=== PATIENT | female | born 1980 | race African-American/Black ===

== ENCOUNTER 2024-03-30 14:26 | Outpatient (AMB) | payer BC, SELFPAY ==
--- NOTE | 2024-03-30 14:31 | MHC.PC.OV ---
Vital Signs 03/30/24 14:44 Height 5 ft 6.22 in Weight 276 lb 2 oz BMI 44.3 BP 124/88 Blood Pressure Location Lt brachial Position Sitting Respiration 16 Pulse 75 Pulse Source Pulse Oximeter Temp 98.7 F Temp Source Oral Pulse Oximetry (%) 97 Oxygen Delivery Method Room Air Intake Visit Reasons: new patient Allergies Penicillins Allergy (Severe, Verified 03/30/24 14:37) Anaphylaxis Medication List - Last Reconciled 03/30/24 by Geno Iglesias PA-C amlodipine 5 mg PO DAILY cholecalciferol (vitamin D3) 250 mcg PO DAILY cyanocobalamin-salcaprozat sod 1,000-100 mcg-mg tabs PO emtricitabine-tenofovir (TDF) 200-300 mg 1 tab PO DAILY multivitamin 1 tab PO DAILY omeprazole magnesium (Prilosec OTC) 20 mg PO DAILY Tobacco use date assessed: 03/30/24 Dental Screening Dental Screen Date: 03/30/24 Did you have a dental visit in the last 12 months?: Yes Did you have a dental problem in the last 6 months where you did not have access to dental care?: No Was dental information given to patient?: Patient has dentist HPI new patient HPI Details Patient is a 43-year-old female who [facility]. She is transferring from [facility]. She has a significant past medical history of hypertension, obesity, hyperlipidemia, paroxysmal AFib, MORGAN on cpap, pcos, prediabetes and tobacco use. CV: Blood pressure today in the office is 124/88. She is currently on Norvasc 5 mg daily, metoprolol 50 bid, and flecainide prn breakthrough afib. She does not need ac yet. She follows with Dr. Manning. She did see EP and the plan was flecainide to try now. Heme/Onc: Following with [facility] hematology for anemia and dx thalessemia. She had a sleep study in November which did confirm MORGAN and she is on CPAP Pysch: She has a hard time falling asleep and staying asleep. She is wondering about trazodone. Mammo: Aug 2023, utd Tabber: Sees [facility] nurse gynecology [facility] Medical History (Updated 03/30/24 @ 15:13 by Geno Iglesias PA-C) Vulvar lesion Tobacco use Severe obesity Prediabetes New onset a-fib Hyperlipidemia HTN (hypertension) Elevated creatine kinase Surgical History (Updated 03/30/24 @ 14:52 by Jordyn Boucher CMA) H/O gastric sleeve Family History (Updated 03/30/24 @ 14:51 by Jordyn Boucher CMA) Father Alcoholic Arrhythmia Afib COPD (chronic obstructive pulmonary disease) Morbid obesity Mother Diabetes Kidney disease Other Substance use Social History Housing: Apartment Patient Tobacco Use Status: Current everyday Tobacco user Cigarette Packs Per Day: 0.25 Years Smoked: 15 e-Cigarette/Vaping Use: Never Used Second Hand Smoke Exposure: No service: No Current occupational status: 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 1. Little interest or pleasure in doing things: not at all 2. Feeling down, depressed, or hopeless: not at all 3. Trouble falling or staying asleep, or sleeping too much: not at all 4. Feeling tired or having little energy: not at all 5. Poor appetite or overeating: not at all 6. Feeling bad about yourself - or that you are a failure or have let yourself or your family down: not at all 7. Trouble concentrating on things, such as reading the newspaper or watching television: not at all 8. Moving or speaking so slowly that other people could have noticed. Or the opposite - being so fidgety or restless that you have been moving around a lot more than usual: not at all 9. Thoughts that you would be better off or of hurting yourself in some way: not at all Total score: 0 Depression Screening Interpretation: Negative Depression Screening Done: Yes Source: Developed by Drs. Swapnil Olmedo, Gloria Thompson, Pranay Payan and colleagues, with an educational anoop from [employer]. AUDIT C Alcohol Use Questionnaire (AUDIT-C) 1. How often do you have a drink containing alcohol?: 2-3 times a week 2. How many drinks containing alcohol do you have on a typical day when you are drinking?: 1 or 2 3. How often do you have six or more drinks on one occasion?: Never Total Score: 3 JOSE CARLOS-7 AMB Questionnaire JOSE CARLOS-7 Feeling nervous, anxious, or on edge: 0 = Not at all Not being able to stop or control worryin = Not at all Worrying too much about different things: 0 = Not at all Trouble relaxin = Not at all Being so restless that it is hard to sit still: 0 = Not at all Becoming easily annoyed or irritable: 0 = Not at all Feeling afraid as if something awful might happen: 0 = Not at all Total JOSE CARLOS-7 score (0-4 normal; 5-9 mild; 10-14 moderate; 15-21 severe): 0 Source: Developed by Drs. Swapnil Olmedo, Gloria Thompson, Pranay Payan and colleagues, with an educational anoop from [employer]. JOSE CARLOS-7 Assessment Billing JOSE CARLOS-7 Assessment Tool: JOSE CARLOS-7 Assessment [id number] Physical exam (Primary Care) Vital Signs: Last Vital Signs Temp 98.7 F 03/30/24 14:44 Pulse 75 03/30/24 14:44 Resp 16 03/30/24 14:44 BP 124/88 03/30/24 14:44 Pulse Ox 97 03/30/24 14:44 Oxygen Delivery Method Room Air 03/30/24 14:44 BMI result Body Mass Index 44.3 BMI Assessment/Plan discussion: High BMI High, discussed plan: lifestyle, weight reduction, dietary and physical activity Tobacco/Smoking Status: Tobacco use Status Tobacco use date assessed 03/30/24 03/30/24 14:51 Patient Tobacco Use Status Current everyday Tobacco 03/30/24 14:51 e-Cigarette/Vaping Use Never Used 03/30/24 14:51 Depression Screening Interpretation: Negative Const Orientation/consciousness: patient oriented x3 HENMT Ears: hearing grossly normal bilaterally Neck Thyroid: Thyroid normal Lymphatic: no lymphadenopathy noted Resp Auscultation: clear to auscultation bilaterally Cardio Rate: regular rate Rhythm: regular rhythm Heart sounds: S1 normal heart sound present and S2 normal heart sound present GI Inspection: Yes normal to inspection Palpation (GI): Soft to palpation and Other GI palpation findings present (nontender, no cva tenderness) Auscultation: normoactive bowel sounds Rectal Exam - Female: deferred Skin General skin exam: no rashes or lesions noted Neuro General: patient oriented x3, gait normal and no focal motor deficits Assessment and Plan Assessment & Plan (1) HTN (hypertension): Code(s): I10 - Essential (primary) hypertension Qualifiers: Hypertension type: primary hypertension Qualified Code(s): I10 - Essential (primary) hypertension Plan: WNL today. Continue current regimen (2) Prediabetes: Code(s): R73.03 - Prediabetes Plan: Labs ordered to including A1c (3) Paroxysmal A-fib: Code(s): I48.0 - Paroxysmal atrial fibrillation Plan: Follows with cardiology. Currently well-controlled. (4) Insomnia: Code(s): G47.00 - Insomnia, unspecified Plan: We will try trazodone. Discussed risks, benefits and adverse effects of the medication. One-month follow-up. Sooner if needed. (5) MORGAN on CPAP: Code(s): G47.33 - Obstructive sleep apnea (adult) (pediatric) Plan: Doing well on CPAP. Follows with sleep Medicine. Orders: Orders Vitamin B12 and Folate Today G47.00 - Insomnia, unspecified, G47.33 - Obstructive sleep apnea (adult) (pediatric), I10 - Essential (primary) hypertension, I48.0 - Paroxysmal atrial fibrillation, R73.03 - Prediabetes Complete Blood Count Auto Diff Today G47.00 - Insomnia, unspecified, G47.33 - Obstructive sleep apnea (adult) (pediatric), I10 - Essential (primary) hypertension, I48.0 - Paroxysmal atrial fibrillation, R73.03 - Prediabetes Comprehensive [place]. Panel Fast Today G47.00 - Insomnia, unspecified, G47.33 - Obstructive sleep apnea (adult) (pediatric), I10 - Essential (primary) hypertension, I48.0 - Paroxysmal atrial fibrillation, R73.03 - Prediabetes Lipid Panel Today G47.00 - Insomnia, unspecified, G47.33 - Obstructive sleep apnea (adult) (pediatric), I10 - Essential (primary) hypertension, I48.0 - Paroxysmal atrial fibrillation, R73.03 - Prediabetes TSH reflex Free T4 Today G47.00 - Insomnia, unspecified, G47.33 - Obstructive sleep apnea (adult) (pediatric), I10 - Essential (primary) hypertension, I48.0 - Paroxysmal atrial fibrillation, R73.03 - Prediabetes Medications: New trazodone 50 mg PO BEDTIME 90 tabs 1RF Coding Level of Care Code Est Pt Level 4 (35993) Complex EM visit Add On G2211 Diagnoses Primary hypertension I10 Hypertension type: primary hypertension Prediabetes R73.03 Paroxysmal A-fib I48.0 Insomnia G47.00 MORGAN on CPAP G47.33 Additional Codes JOSE CARLOS-7 Assessment Billing - JOSE CARLOS-7 Assessment Tool: JOSE CARLOS-7 Assessment [id number] ([id number])
[2024-03-30 14:44] VITALS: BP 124/88; PULSE 75; RESP 16; TEMP 37.1; O2SAT 97; BMI 44.3
== END 2024-03-30 15:14 | disposition home or self-care (01) ==
PROVIDERS: PCP Physician Assistant; Visit Provider Physician Assistant
DX: I10 Essential (primary) hypertension (principal); R73.03 Prediabetes; I48.0 Paroxysmal atrial fibrillation; G47.00 Insomnia, unspecified; G47.33 Obstructive sleep apnea (adult) (pediatric)
CPT/HCPCS: 99204; 99214

== ENCOUNTER 2024-04-18 09:56 | Outpatient (REF) | payer BC, SELFPAY ==
[2024-04-18 11:45] LABS: MANUAL DIFF FLAG NO
[2024-04-18 11:48] LABS: Basophils Percent Auto 0.4 % (0-2); Eosinophils Absolute Auto 0.2 X10*3/uL (0.0-0.4); Hematocrit 39.4 % (37.0-47.0); Hemoglobin 12.3 g/dl (12.0-16.0); Imm Gran Abs Auto 0.03 X10*3/uL (0.00-0.03); Imm Gran Pct Auto 0.3 % (0.0-0.4); Lymphocytes Absolute Auto 2.9 X10*3/uL (1.2-4.9); Lymphocytes Percent Auto 32.8 % (20-40); Mean Corpuscular HGB Conc 31.2 g/dl (31.0-35.0); Mean Corpuscular Hemoglobin 23.6 pg (27.0-33.0); Mean Corpuscular Volume 75.5 fL (80.0-98.0); Mean Platelet Volume 12.3 fL (9.4-12.3); Monocytes Absolute Auto 0.7 X10*3/uL (0.1-1.2); Monocytes Percent Auto 8.1 % (2-11); Neutrophils Percent Auto 56.4 % (45-73); Platelet Count 261 X10*3/uL (160-400); Red Blood Count 5.22 X10*6/uL (4.20-5.50); Red Cell Distribution Width 16.4 % (11.0-16.0); White Blood Count 8.9 X10*3/uL (4.8-10.8)
[2024-04-18 12:42] LABS: Alanine Aminotransferase 19 U/L (0-31); Albumin Level 3.7 g/dL (3.5-5.0); Alkaline Phosphatase 41 U/L (39-117); Anion Gap 14 (12-20); Aspartate Amino Transferase 17 U/L (5-31); Bilirubin Total 0.2 mg/dL (0.0-1.0); Blood Urea Nitrogen 15 mg/dL (9-16); Carbon Dioxide 23 mmol/L (22-29); Chloride 105 mmol/L (96-108); Cholesterol 195 mg/dL (<200); Estimated Glomerular Filt Rate 57; Glucose Fasting 84 mg/dL (60-99); HDL Cholesterol 55 mg/dL (>40); LDL Cholesterol Calculated 112 mg/dL (<100); Potassium 3.8 mmol/L (3.3-5.1); Sodium 138 mmol/L (135-145); Triglycerides 142 mg/dL (<150)
[2024-04-18 12:47] LABS: TSH reflex Free T4 2.25 uIU/mL (0.32-4.0)
[2024-04-18 12:56] LABS: Folate 3.9 ng/mL (> or = 4.0); Vitamin B12 1598 pg/mL (200-900)
== END 2024-04-18 09:57 | disposition home or self-care (01) ==
LOC: HO.WFDLDS 09:56
PROVIDERS: Visit Provider Physician Assistant
DX: R73.03 Prediabetes (principal); I48.0 Paroxysmal atrial fibrillation; I10 Essential (primary) hypertension; G47.00 Insomnia, unspecified; G47.33 Obstructive sleep apnea (adult) (pediatric)
CPT/HCPCS: 36415; 80053; 80061; 82607; 82746; 84443; 85025

== ENCOUNTER 2024-05-04 13:48 | Outpatient (AMB) | payer BC, SELFPAY ==
--- NOTE | 2024-05-04 13:59 | MHC.PC.OV ---
Vital Signs 05/04/24 14:03 Height 5 ft 6.2 in Weight 277 lb 6 oz BMI 44.5 BP 126/84 Blood Pressure Location Lt brachial Position Sitting Respiration 16 Pulse 77 Pulse Source Pulse Oximeter Pulse Oximetry (%) 98 Oxygen Delivery Method Room Air Intake Visit Reasons: med recheck Intake Note: Medication follow up. Was taking vitamin d3 5,000 units daily and b12 1,000 daily, stopped due to elevated levels. Risk Specialist Required: No Allergies Penicillins Allergy (Severe, Verified 05/04/24 14:00) Anaphylaxis Medication List - Last Reconciled 05/04/24 by Geno Iglesias PA-C amlodipine 5 mg PO DAILY flecainide mg PO folic acid 1 mg PO DAILY metoprolol tartrate 50 mg PO BID multivitamin 1 tab PO DAILY omeprazole magnesium (Prilosec OTC) 20 mg PO DAILY trazodone 50 mg PO BEDTIME Tobacco use date assessed: 03/30/24 Dental Screening Dental Screen Date: 03/30/24 HPI med recheck HPI Details Patient is a 43-year-old female who presents today for a follow up. She is transferring from [facility]. She has a significant past medical history of hypertension, obesity, hyperlipidemia, paroxysmal AFib, MORGAN on cpap, pcos, prediabetes and tobacco use. CV: Blood pressure today in the office is 124/88. She is currently on Norvasc 5 mg daily, metoprolol 50 bid, and flecainide prn breakthrough afib. She does not need ac yet. She follows with Dr. Manning. She did see EP and the plan was flecainide to try now. Heme/Onc: Following with [facility] hematology for anemia and dx thalessemia. She had a sleep study in November which did confirm MORGAN and she is on CPAP Pysch: At our last visit I started her on trazodone but felt drowsy in the AM. she is trying thc gummies which have been helpful. 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 [facility] Medical History (Updated 05/04/24 @ 14:16 by Geno Iglesias PA-C) Vulvar lesion Tobacco use Severe obesity Prediabetes New onset a-fib Hyperlipidemia HTN (hypertension) Elevated creatine kinase Surgical History (Updated 03/30/24 @ 14:52 by Jordyn Boucher CMA) H/O gastric sleeve Family History (Updated 03/30/24 @ 14:51 by Jordyn Boucher CMA) Father Alcoholic Arrhythmia Afib COPD (chronic obstructive pulmonary disease) Morbid obesity Mother Diabetes Kidney disease Other Substance use Social History Housing: Apartment Patient Tobacco Use Status: Current everyday Tobacco user Cigarette Packs Per Day: 0.25 Years Smoked: 15 e-Cigarette/Vaping Use: Never Used Second Hand Smoke Exposure: No service: No Current occupational status: 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 Current occupational exposures/hazards: No Cognitive needs: No Hearing needs: No Vision needs: No Physical exam (Primary Care) Vital Signs: Last Vital Signs Pulse 77 05/04/24 14:03 Resp 16 05/04/24 14:03 BP 126/84 05/04/24 14:03 Pulse Ox 98 05/04/24 14:03 Oxygen Delivery Method Room Air 05/04/24 14:03 BMI result Body Mass Index 44.5 Tobacco/Smoking Status: Tobacco use Status Tobacco use date assessed 03/30/24 05/04/24 13:59 Patient Tobacco Use Status Current everyday Tobacco 05/04/24 13:59 e-Cigarette/Vaping Use Never Used 05/04/24 13:59 Const Orientation/consciousness: patient oriented x3 HENMT Ears: hearing grossly normal bilaterally Neck Thyroid: Thyroid normal Lymphatic: no lymphadenopathy noted Resp Auscultation: clear to auscultation bilaterally Cardio Rate: regular rate Rhythm: regular rhythm Heart sounds: S1 normal heart sound present and S2 normal heart sound present GI Inspection: Yes normal to inspection Palpation (GI): Soft to palpation and Other GI palpation findings present (nontender, no cva tenderness) Auscultation: normoactive bowel sounds Rectal Exam - Female: deferred Skin General skin exam: no rashes or lesions noted Neuro General: patient oriented x3, gait normal and no focal motor deficits Results Reviewed Results Reviewed: Laboratory Tests 04/18/24 09:58 WBC 8.9 RBC 5.22 Hgb 12.3 Hct 39.4 Plt Count 261 Sodium 138 Potassium 3.8 Chloride 105 Carbon Dioxide 23 Anion Gap 14 BUN 15 Creatinine 1.05 Estimated GFR 57 Fasting Glucose 84 Triglycerides 142 Cholesterol 195 LDL Cholesterol, Calc 112 H HDL Cholesterol 55 TSH 2.25 Assessment and Plan Assessment & Plan (1) HTN (hypertension): Code(s): I10 - Essential (primary) hypertension Qualifiers: Hypertension type: primary hypertension Qualified Code(s): I10 - Essential (primary) hypertension Plan: continue current plan (2) Prediabetes: Code(s): R73.03 - Prediabetes Plan: a1c ordered (3) Insomnia: Code(s): G47.00 - Insomnia, unspecified Plan: continue supplement (4) Decreased GFR: Code(s): R94.4 - Abnormal results of kidney function studies Plan: recheck today along with urine Coding Level of Care Code Est Pt Level 4 (66052) Complex EM visit Add On G2211 Diagnoses Primary hypertension I10 Hypertension type: primary hypertension Prediabetes R73.03 Insomnia G47.00 Decreased GFR R94.4
[2024-05-04 14:03] VITALS: BP 126/84; PULSE 77; RESP 16; O2SAT 98; BMI 44.5
== END 2024-05-04 14:59 | disposition home or self-care (01) ==
PROVIDERS: PCP Physician Assistant; Visit Provider Physician Assistant
DX: I10 Essential (primary) hypertension (principal); R73.03 Prediabetes; G47.00 Insomnia, unspecified; R94.4 Abnormal results of kidney function studies
CPT/HCPCS: 99214

== ENCOUNTER 2024-05-04 14:30 | Outpatient (REF) | payer BC, SELFPAY ==
[2024-05-04 17:51] LABS: Anion Gap 10 (12-20); Blood Urea Nitrogen 12 mg/dL (9-16); Calcium 9.3 mg/dL (8.4-10.2); Carbon Dioxide 28 mmol/L (22-29); Chloride 105 mmol/L (96-108); Estimated Glomerular Filt Rate 58; Glucose Random 105 mg/dL (60-115); Potassium 4.2 mmol/L (3.3-5.1); Sodium 139 mmol/L (135-145)
[2024-05-04 18:08] LABS: Creatinine Urine 99.01 mg/dL; Microalbumin Urine < 5.0 mg/L
[2024-05-05 07:27] LABS: Estimated Average Glucose 114 mg/dL; Hemoglobin A1c % 5.6 % (<6.0)
== END 2024-05-04 14:31 | disposition home or self-care (01) ==
LOC: HO.WFDLDS 14:30
PROVIDERS: Visit Provider Physician Assistant
DX: R94.4 Abnormal results of kidney function studies (principal); R73.03 Prediabetes
CPT/HCPCS: 36415; 80048; 82570; 83036

== ENCOUNTER 2024-05-27 10:13 | Outpatient (AMB) | payer BC, SELFPAY ==
[2024-05-27 10:14] VITALS: BP 124/88; PULSE 87; O2SAT 97; BMI 44.9
--- NOTE | 2024-05-27 10:14 | HO.NEPHOV_ITS ---
Vital Signs 05/27/24 10:14 Height 5 ft 6 in Weight 278 lb BMI 44.9 BP 124/88 Blood Pressure Location Lt brachial Position Sitting Pulse 87 Pulse Source Pulse Oximeter Pulse Oximetry (%) 97 Oxygen Delivery Method Room Air Intake Visit Reasons: Htn, Abnormal kidney function/ Conf Compliance Mgr Required: No Accompanied by: Self / Same As Patient Allergies Penicillins Allergy (Severe, Verified 05/27/24 10:16) Anaphylaxis Medication List - Last Reconciled 05/27/24 by Mariano Cardoso MD amlodipine 5 mg PO DAILY flecainide 300 mg PO DAILY PRN folic acid 1 mg PO DAILY metoprolol tartrate 50 mg PO BID multivitamin 1 tab PO DAILY omeprazole magnesium (Prilosec OTC) 20 mg PO DAILY PRN trazodone 50 mg PO BEDTIME PRN HPI Comments Details: Crystal is a pleasant 44-year-old woman with a history of hypertension and increase BMI he was found to have decreased GFR. Back in August of 2023 serum creatinine was 1.0. Recently creatinine was 1.05 and repeat creatinine was 1.03. The corresponding EGFR was reported at 58 mL/minute and hence this evaluation. Crystal underwent gastric sleeve surgery. She lost about 50-70 lb be back in 2015. Subsequently she came in the weight back. She does have prediabetes. Blood pressure seems to be well controlled with metoprolol and amlodipine. She has a history of atrial fibrillation and rate is well controlled. Back in October of 2023 she took Truvada for prophylaxis up until 01/18/2024. She also has GERD and takes omeprazole on a chronic basis. History of obstructive sleep apnea. She does not use CPAP on a regular basis. No history of smoking or alcohol abuse. She works in [employer]. Mom has end stage renal disease due to hypertension diabetes mellitus and status post kidney transplantation. She has no difficulty urination. No history of kidney stones. No nausea or vomiting. No shortness of breath chest pain. No fever no rash. [facility] Medical History (Updated 05/04/24 @ 14:16 by Geno Iglesias PA-C) Vulvar lesion Tobacco use Severe obesity Prediabetes New onset a-fib Hyperlipidemia HTN (hypertension) Elevated creatine kinase Surgical History H/O gastric sleeve Family History Father Alcoholic Arrhythmia Afib COPD (chronic obstructive pulmonary disease) Morbid obesity Mother Diabetes Kidney disease Other Substance use Social History Housing: Apartment Patient Tobacco Use Status: Current everyday Tobacco user Cigarette Packs Per Day: 0.25 Years Smoked: 15 e-Cigarette/Vaping Use: Never Used Second Hand Smoke Exposure: No service: No 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 occupational status: 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 Current occupational exposures/hazards: No Cognitive needs: No Hearing needs: No Vision needs: No Physical Exam Vital Signs: Last Vital Signs Pulse 87 05/27/24 10:14 BP 124/88 05/27/24 10:14 Pulse Ox 97 05/27/24 10:14 Oxygen Delivery Method Room Air 05/27/24 10:14 BMI result Body Mass Index 44.9 Obese Const General: comfortable; No acute distress Orientation/consciousness: patient oriented x3 Eyes General: appearance normal, both eyes and all related structures Visual Dumont: normal visual dumont by confrontation Neck Neck: Yes supple and Yes no JVD Resp Effort & Inspection: normal respiratory effort and respiratory effort not decreased Auscultation: rhonchi Cardio Palpation: no palpable S3 and no palpable S4 Heart sounds: no rubs GI Inspection: Yes normal to inspection Palpation (GI): Soft to palpation Percussion: Yes normal to percussion Auscultation: normal bowel sounds General: Yes no CVA tenderness Back/Spine/Pelvis Back: no CVA tenderness Skin General skin exam: no petechiae and no purpura Neuro General: patient oriented x3 and no focal motor deficits Extrem General: No clubbing and No edema Results Reviewed Nephrology Results: Hgb 12.3 g/dl (12.0-16.0) 04/18/24 WBC 8.9 X10*3/uL (4.8-10.8) 04/18/24 Plt Count 261 X10*3/uL (160-400) 04/18/24 Sodium 139 mmol/L (135-145) 05/04/24 Potassium 4.2 mmol/L (3.3-5.1) 05/04/24 Chloride 105 mmol/L (96-108) 05/04/24 Carbon Dioxide 28 mmol/L (22-29) 05/04/24 BUN 12 mg/dL (9-16) 05/04/24 Creatinine 1.03 mg/dL (0.5-1.4) 05/04/24 Calcium 9.3 mg/dL (8.4-10.2) 05/04/24 Urine Creatinine 99.01 mg/dL 05/04/24 Assessment & Plan Assessment & Plan (1) HTN (hypertension): Code(s): I10 - Essential (primary) hypertension Category: Medical Qualifiers: Hypertension type: primary hypertension Qualified Code(s): I10 - Essential (primary) hypertension (2) Decreased GFR: Code(s): R94.4 - Abnormal results of kidney function studies Category: Medical Plan Pleasant 44-year-old woman with a history of obesity hypertension and prediabetes with a serum creatinine of 1.05 and EGFR of 58 mL/minute. The accuracy of EGFR is questionable at this point. Obtain 24 hour urine collection for creatinine clearance. If she has low creatinine clearance she will require further workup. She has increased muscle mass therefore the serum creatinine of 1.0 3 May be her baseline. He has no significant proteinuria. With a history of gastric weight loss surgery I will obtain a renal ultrasonogram to screen for nephrolithiasis. He has been on proton pump inhibitor for a long time which could be a potential factor for reduce EGFR Encouraged her to stay on low-sodium diet She needs weight loss. Optimize blood pressure and continue overt nephrotoxic agents. Further workup based on the outcome of the above investigations. Orders: Orders Basic Metabolic Panel Today Mariano Cardoso MD I10 - Essential (primary) hypertension, R94.4 - Abnormal results of kidney function studies Creatinine, 24 Hr Group Today Mariano Cardoso MD I10 - Essential (primary) hypertension, R94.4 - Abnormal results of kidney function studies UA and rflx microscopic Today Mariano Cardoso MD I10 - Essential (primary) hypertension, R94.4 - Abnormal results of kidney function studies Creatinine Clearance Urine 24U Today Mariano Cardoso MD I10 - Essential (primary) hypertension, R94.4 - Abnormal results of kidney function studies Medications: Changed From trazodone 50 mg PO BEDTIME 90 tabs 1RF To trazodone 50 mg PO BEDTIME PRN Geno Iglesias PA-C Coding Level of Care Code New Pt Level 4 (44813) Diagnoses Primary hypertension I10 Hypertension type: primary hypertension Decreased GFR R94.4
== END 2024-05-27 10:36 | disposition home or self-care (01) ==
PROVIDERS: PCP Physician Assistant; Referring Provider Physician Assistant; Visit Provider Internal Medicine Hypertension Specialist
DX: I10 Essential (primary) hypertension (principal); R94.4 Abnormal results of kidney function studies; R73.03 Prediabetes
CPT/HCPCS: 99204

== ENCOUNTER → 2024-05-27 10:13 | Outpatient (BNVA) | payer BC, SELFPAY | PROVIDERS: PCP Physician Assistant; Referring Provider Physician Assistant; Visit Provider Internal Medicine Hypertension Specialist ==

== ENCOUNTER 2024-05-27 11:28 | Outpatient (REF) | payer BC, SELFPAY | END 2024-05-27 11:29 | disposition home or self-care (01) | LOC: HO.WFDLDS 11:28 | PROVIDERS: Visit Provider Internal Medicine Hypertension Specialist | DX: Z13.89 Encounter for screening for other disorder (principal) ==

== ENCOUNTER 2024-06-15 09:57 | Outpatient (REF) | payer BC, SELFPAY ==
[2024-06-15 11:37] LABS: Appearance Urine Clear; Color Urine Yellow; Glucose Urine UA Negative (Negative); Leukocyte Esterase Urine Trace (Negative); Nitrite Urine Negative (Negative); PH 5.5 (5.0-9.0); Specific Gravity - Urine >= 1.030 (1.005-1.025); UMIC TRIGGER UA YES; Urine Blood Negative (Negative); Urine Ketones Negative (Negative); Urine Protein Negative (Neg-Trace)
[2024-06-15 11:40] LABS: Bacteria Urine None Seen (None Seen); Hyaline Casts Urine 0-2 /LPF (0-2); RBC Urine 0-2 /HPF (0-2)
[2024-06-15 12:25] LABS: Anion Gap 11 (12-20); Blood Urea Nitrogen 16 mg/dL (9-16); Calcium 9.1 mg/dL (8.4-10.2); Carbon Dioxide 26 mmol/L (22-29); Chloride 106 mmol/L (96-108); Estimated Glomerular Filt Rate 60; Glucose Random 110 mg/dL (60-115); Potassium 3.8 mmol/L (3.3-5.1); Sodium 139 mmol/L (135-145)
[2024-06-15 12:25] LABS: Creatinine, mg/dL 134.96; Creatinine, mg/dL 137.32
[2024-06-15 15:11] LABS: Creatinine, 24Hr Urine 2.2 G/Day (1.0-2.0); Total Volume 24 Hour Urine 1600 mL
[2024-06-15 20:56] LABS: Creatinine (CrCl) 1.01 mg/dL (0.5-1.4); Creatinine Clearance 148.4 mL/min (85-125)
== END 2024-06-15 09:58 | disposition home or self-care (01) ==
LOC: HO.WFDLDS 09:57
PROVIDERS: Visit Provider Internal Medicine Hypertension Specialist
DX: I10 Essential (primary) hypertension (principal); R94.4 Abnormal results of kidney function studies
CPT/HCPCS: 36415; 80048; 81001; 82570; 82575

== ENCOUNTER 2024-06-21 09:50 | Outpatient (AMB) | payer BC, SELFPAY ==
--- NOTE | 2024-06-21 09:57 | HO.NEPHOV ---
Vital Signs 06/21/24 09:58 Height 5 ft 6 in Weight 279 lb BMI 45.0 BP 112/80 Blood Pressure Location Lt brachial Position Sitting Pulse 76 Pulse Source Pulse Oximeter Pulse Oximetry (%) 98 Oxygen Delivery Method Room Air Intake Visit Reasons: 3-4 wks follow up/ LVM Dolly Operator Required: No Accompanied by: Self / Same As Patient Allergies Penicillins Allergy (Severe, Verified 06/21/24 10:00) Anaphylaxis Medication List - Last Reconciled 06/21/24 by Mariano Cardoso MD amlodipine 5 mg PO DAILY flecainide 300 mg PO DAILY PRN folic acid 1 mg PO DAILY metoprolol tartrate 50 mg PO BID multivitamin 1 tab PO DAILY omeprazole magnesium (Prilosec OTC) 20 mg PO DAILY PRN trazodone 50 mg PO BEDTIME PRN HPI Comments Details: Crystal is a pleasant 44-year-old woman with a history of hypertension and increase BMI he was found to have decreased GFR. Back in August of 2023 serum creatinine was 1.0. Recently creatinine was 1.05 and repeat creatinine was 1.03. The corresponding EGFR was reported at 58 mL/minute and hence this evaluation. Crystal underwent gastric sleeve surgery. She lost about 50-70 lb be back in 2015. Subsequently she came in the weight back. She does have prediabetes. Blood pressure seems to be well controlled with metoprolol and amlodipine. She has a history of atrial fibrillation and rate is well controlled. Back in October of 2023 she took Truvada for prophylaxis up until 01/18/2024. She also has GERD and takes omeprazole on a chronic basis. History of obstructive sleep apnea. She does not use CPAP on a regular basis. No history of smoking or alcohol abuse. She works in [employer] Mom has end stage renal disease due to hypertension diabetes mellitus and status post kidney transplantation. She has no difficulty urination. No history of kidney stones. No nausea or vomiting. No shortness of breath chest pain. No fever no rash. 06/21/2024. Overall doing well no new issues Underwent 24 hour urine collection [facility] Medical History (Updated 05/04/24 @ 14:16 by Geno Iglesias PA-C) Vulvar lesion Tobacco use Severe obesity Prediabetes New onset a-fib Hyperlipidemia HTN (hypertension) Elevated creatine kinase Surgical History H/O gastric sleeve Family History Father Alcoholic Arrhythmia Afib COPD (chronic obstructive pulmonary disease) Morbid obesity Mother Diabetes Kidney disease Other Substance use Social History Housing: Apartment Patient Tobacco Use Status: Current everyday Tobacco user Cigarette Packs Per Day: 0.25 Years Smoked: 15 e-Cigarette/Vaping Use: Never Used Second Hand Smoke Exposure: No service: No Current occupational status: 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 Current occupational exposures/hazards: No Cognitive needs: No Hearing needs: No Vision needs: No Physical Exam Vital Signs: Last Vital Signs Pulse 76 06/21/24 09:58 BP 112/80 06/21/24 09:58 Pulse Ox 98 06/21/24 09:58 Oxygen Delivery Method Room Air 06/21/24 09:58 BMI result Body Mass Index 45.0 Results Reviewed Nephrology Results: Hgb 12.3 g/dl (12.0-16.0) 04/18/24 WBC 8.9 X10*3/uL (4.8-10.8) 04/18/24 Plt Count 261 X10*3/uL (160-400) 04/18/24 Sodium 139 mmol/L (135-145) 06/15/24 Potassium 3.8 mmol/L (3.3-5.1) 06/15/24 Chloride 106 mmol/L (96-108) 06/15/24 Carbon Dioxide 26 mmol/L (22-29) 06/15/24 BUN 16 mg/dL (9-16) 06/15/24 Creatinine 1.01 mg/dL (0.5-1.4) 06/15/24 Calcium 9.1 mg/dL (8.4-10.2) 06/15/24 Urine Protein Negative mg/dL (Neg-Trace) 06/15/24 Urine Creatinine 99.01 mg/dL 05/04/24 Assessment & Plan Assessment & Plan (1) HTN (hypertension): Code(s): I10 - Essential (primary) hypertension Category: Medical Qualifiers: Hypertension type: primary hypertension Qualified Code(s): I10 - Essential (primary) hypertension (2) Decreased GFR: Code(s): R94.4 - Abnormal results of kidney function studies Category: Medical Plan Pleasant 44-year-old woman with a history of obesity hypertension and prediabetes with a serum creatinine of 1.05 and EGFR of 58 mL/minute. Repeat serum creatinine was 1.01 Twenty-four urine collection showed a creatinine clearance of 148 mL/minute. Based on this it appears that she has normal kidney function. He has no significant proteinuria. Encouraged her to stay on low-sodium diet She needs weight loss. Optimize blood pressure and continue to avoid nephrotoxic agents. Needs to increase p.o. fluid intake since the urine specific gravity was more than 1.030. No further workup is needed at this point. I would recommend monitoring serum creatinine every 6-12 months. Coding Level of Care Code Est Pt Level 4 (30952) Diagnoses Primary hypertension I10 Hypertension type: primary hypertension Decreased GFR R94.4
[2024-06-21 09:58] VITALS: BP 112/80; PULSE 76; O2SAT 98; BMI 45.0
== END 2024-06-21 10:45 | disposition home or self-care (01) ==
PROVIDERS: PCP Physician Assistant; Visit Provider Internal Medicine Hypertension Specialist
DX: I10 Essential (primary) hypertension (principal); R94.4 Abnormal results of kidney function studies; R73.03 Prediabetes
CPT/HCPCS: 99214

== ENCOUNTER → 2024-06-21 09:50 | Outpatient (BNVA) | payer BC, SELFPAY | PROVIDERS: PCP Physician Assistant; Visit Provider Internal Medicine Hypertension Specialist ==

== ENCOUNTER 2025-08-09 09:45 | Outpatient (REF) | payer BC, SELFPAY ==
[2025-08-09 15:28] LABS: MANUAL DIFF FLAG NO
[2025-08-09 15:37] LABS: Hematocrit 39.3 % (37.0-47.0); Hemoglobin 11.9 g/dl (12.0-16.0); Imm Gran Abs Auto 0.02 X10*3/uL (0.00-0.03); Imm Gran Pct Auto 0.2 % (0.0-0.4); Lymphocytes Absolute Auto 2.5 X10*3/uL (1.2-4.9); Mean Corpuscular HGB Conc 30.3 g/dl (31.0-35.0); Mean Corpuscular Hemoglobin 21.7 pg (27.0-33.0); Mean Corpuscular Volume 71.7 fL (80.0-98.0); NRBC Abs Auto 0.000 X10*3/uL (0.0-0.012); NRBC Pct Auto 0.0 /100WBC (0.0-0.2); Platelet Count 244 X10*3/uL (160-400); Red Blood Count 5.48 X10*6/uL (4.20-5.50); White Blood Count 8.7 X10*3/uL (4.8-10.8)
[2025-08-09 16:30] LABS: Alanine Aminotransferase 23 U/L (0-31); Albumin Level 4.1 g/dL (3.5-5.0); Alkaline Phosphatase 48 U/L (39-117); Anion Gap 11 (12-20); Aspartate Amino Transferase 23 U/L (5-31); Blood Urea Nitrogen 16 mg/dL (9-16); Calcium 9.1 mg/dL (8.4-10.2); Carbon Dioxide 26 mmol/L (22-29); Chloride 106 mmol/L (96-108); Cholesterol 235 mg/dL (<200); Estimated Glomerular Filt Rate 58; HDL Cholesterol 51 mg/dL (>40); Potassium 4.1 mmol/L (3.3-5.1); Sodium 139 mmol/L (135-145); Total Protein 7.2 g/dL (6.5-8.0); Triglycerides 138 mg/dL (<150)
== END 2025-08-09 09:46 | disposition home or self-care (01) ==
LOC: HO.WFDLDS 09:45
PROVIDERS: PCP Physician Assistant; Visit Provider Physician Assistant
DX: I10 Essential (primary) hypertension (principal); R73.01 Impaired fasting glucose; R73.03 Prediabetes; R94.4 Abnormal results of kidney function studies; G47.33 Obstructive sleep apnea (adult) (pediatric); E66.01 Morbid (severe) obesity due to excess calories; Z68.41 Body mass index [BMI] 40.0-44.9, adult
CPT/HCPCS: 36415; 80053; 80061; 83036; 84443; 85025; 96127

== ENCOUNTER 2025-08-09 09:45 | Outpatient (AMB) | payer BC, SELFPAY ==
--- NOTE | 2025-08-09 09:56 | MHC.PC.OV ---
Vital Signs 08/09/25 09:58 Height 5 ft 6 in Weight 275 lb 8 oz BMI 44.5 BP 134/72 Blood Pressure Location Lt brachial Position Sitting Respiration 16 Pulse 67 Pulse Source Pulse Oximeter Temp 97.8 F Temp Source Oral Pulse Oximetry (%) 98 Oxygen Delivery Method Room Air Intake Visit Reasons: Weight loss management Intake Note: Discuss weight loss Qa Internship Required: No Allergies Penicillins Allergy (Severe, Verified 06/21/24 10:00) Anaphylaxis Medication List - Last Reconciled 08/09/25 by Geno Iglesias PA-C amlodipine 5 mg PO DAILY cholecalciferol (vitamin D3) 25 mcg PO DAILY folic acid 1 mg PO DAILY garlic PO metoprolol tartrate 50 mg PO ONCE multivitamin 1 tab PO DAILY omeprazole magnesium (Prilosec OTC) 20 mg PO DAILY PRN Tobacco use date assessed: 08/09/25 Dental Screening Dental Screen Date: 08/09/25 Did you have a dental visit in the last 12 months?: Yes Did you have a dental problem in the last 6 months where you did not have access to dental care?: No Was dental information given to patient?: Patient has dentist HPI Weight loss management HPI Details Patient is a 45-year-old female who presents today for a follow up. She has a significant past medical history of hypertension, obesity, hyperlipidemia, paroxysmal AFib, MORGAN on cpap, pcos, prediabetes and tobacco use. General: She is hoping that she could start zepbound. She used Wegovy in the past but she has read that zepbound maybe more effective and also possibly covered given her history of obstructive sleep apnea. She would be interested in seeing a special education superintendent again. She used to follow with someone after she had bariatric surgery around 2015. She has tried numerous diets including Atkins, [place], weight watchers etc.. She has tried [id number] regimens without improvement. She would not be a candidate for phentermine given her history of AFib. CV: Blood pressure today in the office is 134/72. She is currently on Norvasc 5 mg daily, metoprolol 50 bid. S/p ablation 01/22 and no reoccurrence of afib. [place] [facility] [place]e/Onc: Followed with [facility] hematology for anemia and dx thalessemia. Pulm: She had a sleep study in November which did confirm MORGAN and she is on CPAP. Followed with sleep med from [facility] [place]. Pysch: At our last visit I started her on trazodone but felt drowsy in the AM. she is trying thc gummies which have been helpful. 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: Sees [facility] Medical History (Updated 08/09/25 @ 13:48 by Geno Iglesias PA-C) Vulvar lesion Tobacco use Severe obesity Prediabetes New onset a-fib Hyperlipidemia HTN (hypertension) Elevated creatine kinase Surgical History H/O cardiac ablation H/O gastric sleeve Family History Father Alcoholic Arrhythmia Afib COPD (chronic obstructive pulmonary disease) Morbid obesity Mother Diabetes Kidney disease Other Substance use Social History (Updated 08/09/25 @ 10:02 by Jordyn Boucher CMA) Housing: Apartment Alcohol intake: current Comment: rarely- twice a month Patient Tobacco Use Status: Current everyday Tobacco user Cigarette Packs Per Day: 0.25 Years Smoked: 15 e-Cigarette/Vaping Use: Never Used Second Hand Smoke Exposure: No Substance Use Type: Marijuana service: No Current occupational status: 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 1. Little interest or pleasure in doing things: not at all 2. Feeling down, depressed, or hopeless: not at all 3. Trouble falling or staying asleep, or sleeping too much: not at all 4. Feeling tired or having little energy: not at all 5. Poor appetite or overeating: not at all 6. Feeling bad about yourself - or that you are a failure or have let yourself or your family down: not at all 7. Trouble concentrating on things, such as reading the newspaper or watching television: not at all 8. Moving or speaking so slowly that other people could have noticed. Or the opposite - being so fidgety or restless that you have been moving around a lot more than usual: not at all 9. Thoughts that you would be better off or of hurting yourself in some way: not at all Total score: 0 Source: Developed by Drs. Swapnil Olmedo, Gloria Thompson, Pranay Payan and colleagues, with an educational anoop from [employer]. Thrive Questionnaire I am a: Patient What is your living situation today?: I have a steady place to live Within the past 12 months, did the food you bought not last and you didn't have the money to get more?: Never true Within the past 12 months, did you worry whether your food would run out before you got money to buy more?: Never true Do you have trouble paying for medicines?: No Do you have trouble getting transportation to medical appointments?: No Do you have trouble paying your heating and electricity bill?: No Do you have trouble taking care of your child, family member or friend?: No Do you have trouble with day-to-day activities such as bathing, preparing meals, shopping, managing finances, etc.?: No Are you currently unemployed and looking for a job?: No Are you interested in more education?: No Please select the resources that you would like help with: None Currently or been in a relationship where the following occur: No concerns reported THRIVE Score: 0 AUDIT C Alcohol Use Questionnaire (AUDIT-C) 1. How often do you have a drink containing alcohol?: Never Total Score: 0 JOSE CARLOS-7 AMB Questionnaire JOSE CARLOS-7 Feeling nervous, anxious, or on edge: 0 = Not at all Not being able to stop or control worryin = Not at all Worrying too much about different things: 0 = Not at all Trouble relaxin = Not at all Being so restless that it is hard to sit still: 0 = Not at all Becoming easily annoyed or irritable: 0 = Not at all Feeling afraid as if something awful might happen: 0 = Not at all Total JOSE CARLOS-7 score (0-4 normal; 5-9 mild; 10-14 moderate; 15-21 severe): 0 Source: Developed by Drs. Swapnil Olmedo, Pranay Garvey and colleagues, with an educational anoop from [employer]. Physical exam (Primary Care) Vital Signs: Last Vital Signs Temp 97.8 F 08/09/25 09:58 Pulse 67 08/09/25 09:58 Resp 16 08/09/25 09:58 BP 134/72 08/09/25 09:58 Pulse Ox 98 08/09/25 09:58 Oxygen Delivery Method Room Air 08/09/25 09:58 BMI result Body Mass Index 44.5 Tobacco/Smoking Status: Tobacco use Status Tobacco use date assessed 08/09/25 08/09/25 10:07 Patient Tobacco Use Status Current everyday Tobacco 08/09/25 10:07 e-Cigarette/Vaping Use Never Used 08/09/25 10:07 PHQ-9: PHQ-9 Score PHQ-9: Total score 0 08/09/25 10:25 Currently or been in a relationship where the following occur: No concerns reported Const Orientation/consciousness: patient oriented x3 HENMT Ears: hearing grossly normal bilaterally Neck Thyroid: Thyroid normal Lymphatic: no lymphadenopathy noted Resp Auscultation: clear to auscultation bilaterally Cardio Rate: regular rate Rhythm: regular rhythm Heart sounds: S1 normal heart sound present and S2 normal heart sound present GI Inspection: Yes normal to inspection Palpation (GI): Soft to palpation and Other GI palpation findings present (nontender, no cva tenderness) Auscultation: normoactive bowel sounds Rectal Exam - Female: deferred Skin General skin exam: no rashes or lesions noted Neuro General: patient oriented x3, gait normal and no focal motor deficits Coding Level of Care Code Est Pt Level 4 (53769) Add On Problem Visit Only Diagnoses Primary hypertension I10 Hypertension type: primary hypertension Prediabetes R73.03 MORGAN on CPAP G47.33 Decreased GFR R94.4 Severe obesity (BMI >= 40) E66.01 Assessment & Plan Assessment & Plan (1) HTN (hypertension): Code(s): I10 - Essential (primary) hypertension Category: Medical Qualifiers: Hypertension type: primary hypertension Qualified Code(s): I10 - Essential (primary) hypertension Plan: WNL. Continue current regimen (2) Prediabetes: Code(s): R73.03 - Prediabetes Category: Medical Plan: It has been over year since we last checked labs. We will check an A1c today. (3) MORGNA on CPAP: Code(s): G47.33 - Obstructive sleep apnea (adult) (pediatric) Category: Medical Plan: Following with sleep Medicine (4) Decreased GFR: Code(s): R94.4 - Abnormal results of kidney function studies Category: Medical Plan: We will recheck and monitor. Had followed with Nephrology in the past (5) Severe obesity (BMI >= 40): Code(s): E66.01 - Morbid (severe) obesity due to excess calories Category: Medical Plan: will try zepbound. Discussed risks and benefits and adverse effects of this medication. She will let me know if it is not covered by insurance. We did discuss also possibly sending it to [facility]. Orders: Orders Lipid Panel Today G47.33 - Obstructive sleep apnea (adult) (pediatric), I10 - Essential (primary) hypertension, R73.03 - Prediabetes, R94.4 - Abnormal results of kidney function studies Complete Blood Count Auto Diff Today G47.33 - Obstructive sleep apnea (adult) (pediatric), I10 - Essential (primary) hypertension, R73.03 - Prediabetes, R94.4 - Abnormal results of kidney function studies Comprehensive [place]. Panel Fast Today G47.33 - Obstructive sleep apnea (adult) (pediatric), I10 - Essential (primary) hypertension, R73.03 - Prediabetes, R94.4 - Abnormal results of kidney function studies Hemoglobin A1c Today G47.33 - Obstructive sleep apnea (adult) (pediatric), I10 - Essential (primary) hypertension, R73.01 - Impaired fasting glucose, R73.03 - Prediabetes, R94.4 - Abnormal results of kidney function studies TSH reflex Free T4 Today G47.33 - Obstructive sleep apnea (adult) (pediatric), I10 - Essential (primary) hypertension, R73.03 - Prediabetes, R94.4 - Abnormal results of kidney function studies Referrals [facility] Referral I10 - Essential (primary) hypertension, R73.03 - Prediabetes Medications: New tirzepatide (weight loss) (Zepbound) 2.5 mg (0.5 mL) subcut QWEEK 2 mL 1RF
[2025-08-09 09:58] VITALS: BP 134/72; PULSE 67; RESP 16; TEMP 36.6; O2SAT 98; BMI 44.5
== END 2025-08-09 10:37 | disposition home or self-care (01) ==
LOC: HO.HMCFM 09:46
PROVIDERS: PCP Physician Assistant; Visit Provider Physician Assistant
DX: I10 Essential (primary) hypertension (principal); R73.03 Prediabetes; E66.01 Morbid (severe) obesity due to excess calories; Z68.41 Body mass index [BMI] 40.0-44.9, adult; G47.33 Obstructive sleep apnea (adult) (pediatric); R94.4 Abnormal results of kidney function studies